=== PATIENT | male | born 1965 | race Caucasian/White ===

== ENCOUNTER 2020-06-27 23:14 | Emergency (ER) | payer OTHER ==
[~2020-06-27] VITALS: Ht 182.9 cm; Wt 106.6 kg
[~2020-06-27 23:14] MED LIST: OXYACE5T PO; RANI150 PO
[2020-06-28] MEDS ORDERED: Norco 5-325 Ta1 EACH PO (01:21)
== END 2020-06-28 01:36 | disposition home or self-care (01) ==
LOC: ER 23:14
DX: S22.32XA Fracture of one rib, left side, initial encounter for closed fracture (principal); W17.89XA Other fall from one level to another, initial encounter
CPT/HCPCS: 74176; 99283-25; A9270; A9270-GY